=== PATIENT | female | born 1960 ===

== ENCOUNTER 2016-12-01 17:29 | Emergency (ER) | payer OTHER ==
[2016-12-01 17:41] VITALS: BP 141/88; PULSE 74; RESP 18; TEMP 97.8; O2SAT 100
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
== END 2016-12-01 18:15 | disposition home or self-care (01) ==
LOC: H.ER 17:29
DX: M54.5 Low back pain (principal); G89.29 Other chronic pain
CPT/HCPCS: 96372; 99282; J1885

== ENCOUNTER 2017-08-28 22:41 | Emergency (ER) | payer MEDICAID, OTHER ==
[2017-08-28 23:10] VITALS: O2SAT 98
--- NOTE | 2017-08-28 23:27 | ED PDOC ---
HPI: Back Time Seen by Provider: 08/28/17 23:17 Chief Complaint (Nursing): Back Pain Chief Complaint (Provider): Lumbar Pain History Per: Patient History/Exam Limitations: no limitations Onset/Duration Of Symptoms: Days (two) Current Symptoms Are (Timing): Still Present Quality Of Discomfort: Sharp Severity: Mild (Pt presents to the ED complaining of lower back pain near the L5 with a numbing feeling down both legs for the past two days; pt had a diskectomy performed two years prior) Past Medical History Reviewed: Historical Data, Nursing Documentation, Vital Signs Vital Signs: Last Vital Signs Temp 98.3 F 08/28/17 23:05 Pulse 76 08/28/17 23:05 Resp 16 08/28/17 23:05 BP 117/86 08/28/17 23:05 Pulse Ox 98 08/28/17 23:05 - Surgical History Surgical History: Back Surgery - Family History Family History: States: Unknown Family Hx - Home Medications Home Medications: Ambulatory Orders Medication Instructions Recorded Meloxicam [Mobic] 1 - 2 tab PO DAILY PRN #30 tab 12/01/16 Methocarbamol [Robaxin] 500 mg PO Q8 PRN #30 tab 12/01/16 Methylprednisolone [Medrol Dose 4 mg PO DAILY #21 mg 12/01/16 Pack (21 tabs)] - Allergies Allergies/Adverse Reactions: Allergies Allergy/AdvReac Type Severity Reaction Status Date / Time No Known Allergies Allergy Verified 12/01/16 17:37 Review of Systems ROS Statement: Except As Marked, All Systems Reviewed And Found Negative Musculoskeletal: Positive for: Back Pain Neurological: Positive for: Numbness Physical Exam - Reviewed Nursing Documentation Reviewed: Yes Vital Signs Reviewed: No - Physical Exam Appears: Positive for: Well, Non-toxic, No Acute Distress Head Exam: Positive for: ATRAUMATIC, NORMAL INSPECTION Skin: Positive for: Normal Color, Warm, Dry Eye Exam: Positive for: Normal appearance Neck: Positive for: Normal, Painless ROM, Supple. Negative for: Decreased ROM Cardiovascular/Chest: Positive for: Regular Rate, Rhythm. Negative for: Bradycardia, Tachycardia Respiratory: Positive for: Normal Breath Sounds. Negative for: Decreased Breath Sounds, Accessory Muscle Use, Stridor, Wheezing, Respiratory Distress Pulses-Carotid (L): 2+ Pulses-Carotid (R): 2+ Pulses-Radial (L): 2+ Pulses-Radial (R): 2+ Back: Positive for: Normal Inspection, Vertebral Tenderness, Decreased ROM. Negative for: L CVA Tenderness, R CVA Tenderness, Muscle Spasm Extremity: Positive for: Other (numbing feeling bilaterally) - ECG O2 Sat by Pulse Oximetry: 98 Disposition - Clinical Impression Clinical Impression: Low back pain, Chronic lower back pain - Disposition Disposition: Transfer of Care Disposition Time: 23:57 Condition: STABLE Forms: [facility] (Mexican)
--- NOTE | 2017-08-29 01:25 | ED PDOC ---
- ECG O2 Sat by Pulse Oximetry: 98 - Progress ED Course And Treament: Case endorsed to specifications writer from [facility] pending CT Tramadol PO, Flexeril PO ordered for continued pain EXAM: CT Lumbar Spine Without Intravenous Contrast EXAM DATE/TIME: 08/28/2017 11:16 PM CLINICAL HISTORY: 56 years old, female; Pain; Low back pain; Prior surgery; Surgery date: 6+ months; Surgery type: Back surgery; Additional info: R/O disk injury TECHNIQUE: Axial computed tomography images of the lumbar spine without intravenous contrast. All CT scans at this facility use one or more dose reduction techniques, viz.: automated exposure control; ma/kV adjustment per patient size (including targeted exams where dose is matched to indication; i.e. head); or iterative reconstruction technique. COMPARISON: No relevant prior studies available. FINDINGS: Vertebrae: No acute fracture. Mild chronic loss of height at L4-L5. Left-sided laminotomies at L3-L4 and L4-L5 Discs/Spinal canal/Neural foramina: Bilateral right greater than left foraminal stenosis at L4-L5. Mild foraminal stenosis at L3-L4 Soft tissues: Unremarkable. Prior cholecystectomy and postsurgical changes in the visualized stomach IMPRESSION: Degenerative changes most pronounced at L3-L4 and L4-L5 as noted No definite disc herniation On re-eval, patient states pain improved. Patient educated on findings, discharged with rx naproxen, flexeril Advised follow up PMD 2-3 days. Return precautions given Disposition - Clinical Impression Clinical Impression: Chronic lower back pain - POA Present On Arrival: None - Disposition Disposition: Routine/Home Disposition Time: 01:24 Condition: STABLE Prescriptions: Cyclobenzaprine [Cyclobenzaprine HCl] 10 mg PO BID PRN #14 tab PRN Reason: Muscle Spasm Naproxen [Naprosyn] 500 mg PO Q12 PRN #20 tablet PRN Reason: Pain, Moderate (4-7) Instructions: Low Back Pain in Adults Forms: [facility] (Lao)
[2017-08-29 01:37] VITALS: BP 108/70; PULSE 60; RESP 18; TEMP 97.7
--- NOTE | 2017-08-29 10:40 | CT ---
PROCEDURE: CT Lumbar Spine without contrast HISTORY: R/O DISK INJURY COMPARISON: None. TECHNIQUE: Axial computed tomography images were obtained of the lumbar spine without the use of intravenous contrast. Coronal and sagittal reformatted images were created and reviewed. Radiation dose: Total exam DLP = 423.37 mGy-cm. This CT exam was performed using one or more of the following dose reduction techniques: Automated exposure control, adjustment of the mA and/or kV according to patient size, and/or use of iterative reconstruction technique. FINDINGS: VERTEBRAE: There is normal alignment of the lumbar vertebral bodies. There is normal lumbar lordosis. There is no acute fracture, spondylolysis or spondylolisthesis. There is diffuse bone demineralization. DISCS/SPINAL CANAL/NEURAL FORAMINA: Evaluation of the discs and spinal canal is limited on noncontrast CT examination. Allowing for this, L1-2: No large disc herniation, neural foraminal or spinal canal stenosis. L2-3: Diffuse posterior disc bulge and mild neural foraminal narrowing. No spinal canal stenosis. L3-4: Diffuse posterior disc bulge with superimposed left posterolateral disc protrusion without central spinal canal stenosis. Moderate right and mild left facet arthropathy contribute to severe left and [id number] right neural foraminal narrowing. L4-5: Diffuse posterior disc bulge without central spinal canal stenosis. Mild bilateral facet arthropathy contribute to moderate neural foraminal narrowing. L5-S1: Diffuse posterior disc bulge without central spinal canal stenosis. Mild bilateral facet arthropathy contribute to mild neural foraminal narrowing. PARASPINAL SOFT TISSUES: Unremarkable. OTHER FINDINGS: None. IMPRESSION: No acute fracture, spondylolysis or spondylolisthesis. Mild multilevel degenerative disc disease, worse at L3-4, with a diffuse posterior disc bulge and superimposed left posterolateral disc protrusion, severe left and moderate to severe right neural foraminal narrowing. Additional comments as described above. A preliminary report was provided by [employer].
== END 2017-08-29 01:46 | disposition home or self-care (01) ==
LOC: H.ER 22:41
DX: M54.5 Low back pain (principal); G89.29 Other chronic pain; M51.26 Other intervertebral disc displacement, lumbar region; M51.36 Other intervertebral disc degeneration, lumbar region
CPT/HCPCS: 72131; 96372; 99283; J1885